=== PATIENT | male | born 1950 | race Caucasian/White ===

== ENCOUNTER → 2019-02-08 | Outpatient (CLI) | payer OTHER ==
[2019-02-08 09:09] LABS: CALCIUM 10.2 mg/dL (8.5-10.1); CREATININE 1.4 mg/dL (0.6-1.3); POTASSIUM 4.5 mmol/L (3.5-5.1)
== END ==
LOC: M.LAB 08:36
PROVIDERS: Internal Medicine Cardiovascular Disease
DX: I11.0 Hypertensive heart disease with heart failure (principal); I50.9 Heart failure, unspecified; E78.5 Hyperlipidemia, unspecified; E11.9 Type 2 diabetes mellitus without complications

== ENCOUNTER → 2019-02-22 | Outpatient (CLI) | payer OTHER ==
[~2019-02-22] MED LIST: AMARYL4 MG PO; COREG6.25 MG PO; COZAAR 25 MG TA25 M1 PO; DICLEGIS DR 101 EACH PO; GLUCOPHAGE1000 MG PO; IMDUR 30 MG TAB30 M1 PO; KLOR-CON 1010 MEQ PO; LASIX 40 MG TAB40 M2 PO; LEVEMIR; LIPITOR10 MG PO; MEGESTROL400 MG/11 PO; METHYLPHENIDATE5 M1 PO; NITROGLYCERIN0.4 MG; PREDNISONE 10 M10 MG PO; ZAROXOLYN 5MG TA5 MG PO; ZYLOPRIM300 MG PO
--- NOTE | 2019-02-22 14:14 | 2DMMODE ---
[place] [address] 2 D/M-MODE ECHOCARDIOGRAM Name: NATALIA VELAZQUEZ Room: [facility]#: [id number] Admission: 02/22/19 Attend Phys: Sonia Goins, Discharge: Date of : 48 Date of Service: 02/22/19 1413 Report #: [id number] THIS REPORT FOR: //name// APPROVED REPORT Study performed: 02/22/2019 12:56:50 EXAM: Comprehensive 2D, Doppler, and color-flow Echocardiogram Patient Location: Out-Patient BSA: 2.00 HR: 70 bpm BP: 120/58 mmHg Other Information Study Quality: Good Indications Congestive Heart Failure Dyspnea CAD 2D Dimensions IVSd: 14.50 (7-11mm) LVOT Diam: 21.41 (18-24mm) LVDd: 53.01 mm PWd: 14.23 (7-11mm) Ascending Ao: 36.34 (22-36mm) LVDs: 37.41 (25-40mm) Aortic Root: 35.11 mm Volumes Left Atrial Volume (Systole) LA ESV Index: 33.80 mL/m2 Aortic Valve AoV Peak Phillip.: 1.21 m/s AO Peak Gr.: 5.82 mmHg LVOT Max P.93 mmHg AO Mean Gr.: 3.41 mmHg LVOT Mean P.33 mmHg LVOT Max V: 0.86 m/s AO V2 VTI: 19.77 cm LVOT Mean V: 0.52 m/s CLEMENT (VTI): 2.93 cm2 LVOT V1 VTI: 16.10 cm Mitral Valve MV Decel. Time: 232.06 ms MV PHT: 67.30 ms MVA (PHT): 3.27 [place]2 [place] [address] 2 D/M-MODE ECHOCARDIOGRAM Name: NATALIA VELAZQUEZ Room: [facility]#: [id number] Admission: 02/22/19 Attend Phys: Sonia Goins, Discharge: Date of : 48 Date of Service: 02/22/19 1413 Report #: [id number] TDI Medial E' Phillip.: 0.09 m/s Lateral E' Phillip.: 0.11 m/s Pulmonary Valve PV Peak Phillip.: 1.09 m/s PV Peak Gr.: 4.77 mmHg Tricuspid Valve RAP Estimate: 10.00 mmHg TR Peak Gr.: 38.45 mmHg RVSP: 48.45 mmHg PA Pressure: 48.45 mmHg Left Ventricle The left ventricle is normal size. There is normal LV segmental wall motion. Mild concentric left ventricular hypertrophy. Left ventricular systolic function is borderline. LVEF is 50%. The left ventricular diastolic function is normal. Right Ventricle The right ventricle is normal size. The right ventricular systolic function is normal. Pacemaker lead is present in the right ventricle. Atria Left atrium is mildly dilated. Pacemaker lead is present in the right atrium. Aortic Valve Mild aortic valve sclerosis. Mild aortic regurgitation. There is no aortic valvular stenosis. Mitral Valve The mitral valve is normal in structure. Mild to moderate mitral regurgitation. No evidence of mitral valve stenosis. Tricuspid Valve The tricuspid valve is normal in structure. Moderate tricuspid regurgitation. Pulmonic Valve The pulmonary valve is normal in structure. Mild pulmonic regurgitation. Great Vessels The aortic root is normal in size. IVC is dilated and collapses <50% [place] [address] 2 D/M-MODE ECHOCARDIOGRAM Name: NATALIA VELAZQUEZ Room: [facility]#: [id number] Admission: 02/22/19 Attend Phys: Sonia Goins, Discharge: Date of : 48 Date of Service: 02/22/19 1413 Report #: [id number] Pericardium There is no pericardial effusion. <Conclusion> The left ventricle is normal size. Mild concentric left ventricular hypertrophy. Left ventricular systolic function is borderline. LVEF is 50%. The right ventricle is normal size. Left atrium is mildly dilated. Pacemaker lead is present in the right atrium. Mild aortic valve sclerosis. Mild aortic regurgitation. There is no aortic valvular stenosis. The mitral valve is normal in structure. Mild to moderate mitral regurgitation. The tricuspid valve is normal in structure. Moderate tricuspid regurgitation. IVC is dilated and collapses <50% with inspiration. There is no pericardial effusion. There is normal LV segmental wall motion. <ELECTRONICALLY SIGNED> By: Floyd Lopez MD, [facility] 02/22/19 1413 1413 1413 Floyd Lopez MD, FACC /INF
== END ==
LOC: M.CRD 12:36
DX: I08.8 Other rheumatic multiple valve diseases (principal); I25.10 Atherosclerotic heart disease of native coronary artery without angina pectoris; I50.9 Heart failure, unspecified

== ENCOUNTER → 2019-02-23 | Outpatient (CLI) | payer OTHER ==
[~2019-02-23] VITALS: Ht 175.3 cm; Wt 84.4 kg
[~2019-02-23] MED LIST changes: +ASPIR 8181 MG PO; +BACTRIM DS TAB1 EACH PO; +DEXAMETHASONE 44 M1 PO; +DICLOFENAC SODI75 MG PO; +ELIGARD45 MG SUBQ; +FISH OIL 1,001000 M2 PO; +FOLIC ACID1 MG PO; +MAGNESIUM OXID500 M1 PO; +NORCO 5-325 TA1 EAC1 PO; +ONDANSETRON ODT8 MG PO; +VITAMIN B COMP1 EACH PO; +VITAMIN D2000 UNIT PO; +VITAMIN E400 UNIT PO; +ZYPREXA 10 MG T10 MG PO
[2019-02-23 09:47] LABS: HEMATOCRIT 35.3 % (42.0-52.0); HEMOGLOBIN 11.4 gm/dL (14.0-18.0); MCH 28.2 pg (26.0-34.0); MCHC 32.2 g/dL (28.0-37.0); MCV 87.6 fL (80.0-100.0); MPV 8.1 fl. (7.2-11.1); RBC 4.03 mil/uL (4.50-6.00); RDW-CV 19.4 % (10.5-14.5); WBC 11.6 thou/uL (4.0-11.0)
[2019-02-23 09:50] VITALS: BP 126/63; BP 131/63
[2019-02-23 10:00] LABS: CALCIUM 9.5 mg/dL (8.5-10.1); CREATININE 1.6 mg/dL (0.6-1.3)
[2019-02-23 10:03] LABS: APTT 27.8 Seconds (25.0-31.3); INR 1.1; PROTIME 11.4 Seconds (9.20-11.50)
[2019-02-23 10:35] LABS: TOTAL BILIRUBIN 1.1 mg/dL (<0.1-1.0); TOTAL PROTEIN 7.3 g/dL (6.4-8.2)
[2019-02-23 13:00] VITALS: BP 114/67
[2019-02-23 13:15] VITALS: BP 112/65
[2019-02-23 13:30] VITALS: BP 114/67
[2019-02-23 13:45] VITALS: BP 115/62
== END | disposition home or self-care (01) ==
LOC: M.INT 08:37
PROVIDERS: Radiology Vascular & Interventional Radiology
DX: Z45.2 Encounter for adjustment and management of vascular access device (principal); C34.90 Malignant neoplasm of unspecified part of unspecified bronchus or lung; I10 Essential (primary) hypertension; E11.9 Type 2 diabetes mellitus without complications; K21.9 Gastro-esophageal reflux disease without esophagitis; M10.9 Gout, unspecified; Z98.41 Cataract extraction status, right eye; Z98.42 Cataract extraction status, left eye; Z96.1 Presence of intraocular lens; Z79.899 Other long term (current) drug therapy; Z79.01 Long term (current) use of anticoagulants

== ENCOUNTER 2019-03-07 19:43 | Inpatient (IN) | payer OTHER ==
[2019-03-07] VITALS (11 sets, daily range): BP systolic 64–641; BP diastolic 37–51
[~2019-03-07] VITALS: Ht 175.3 cm; Wt 83.0 kg
[~2019-03-07 19:43] MED LIST changes: -ASPIR 8181 MG PO; -BACTRIM DS TAB1 EACH PO; -DEXAMETHASONE 44 M1 PO; -DICLOFENAC SODI75 MG PO; -ELIGARD45 MG SUBQ; -FISH OIL 1,001000 M2 PO; -FOLIC ACID1 MG PO; -MAGNESIUM OXID500 M1 PO; -NORCO 5-325 TA1 EAC1 PO; -ONDANSETRON ODT8 MG PO; -VITAMIN B COMP1 EACH PO; -VITAMIN D2000 UNIT PO; -VITAMIN E400 UNIT PO; -ZYPREXA 10 MG T10 MG PO
[2019-03-07] MEDS ORDERED: DEXAMETHASONE 44 M1 PO (19:52)
[2019-03-07] MEDS ORDERED: ASPIR 8181 MG PO (19:52)
[2019-03-07] MEDS ORDERED: VITAMIN D2000 UNIT PO (19:52)
[2019-03-07] MEDS ORDERED: ELIGARD45 MG SUBQ (19:53)
[2019-03-07] MEDS ORDERED: DICLOFENAC SODI75 MG PO (19:53)
[2019-03-07] MEDS ORDERED: FISH OIL 1,001000 M2 PO (19:53)
[2019-03-07] MEDS ORDERED: NORCO 5-325 TA1 EAC1 PO (19:54)
[2019-03-07] MEDS ORDERED: MAGNESIUM OXID500 M1 PO (19:54)
[2019-03-07] MEDS ORDERED: FOLIC ACID1 MG PO (19:54)
[2019-03-07] MEDS ORDERED: ONDANSETRON ODT8 MG PO (19:55)
[2019-03-07] MEDS ORDERED: ZYPREXA 10 MG T10 MG PO (19:55)
[2019-03-07] MEDS ORDERED: VITAMIN E400 UNIT PO (19:56)
[2019-03-07] MEDS ORDERED: BACTRIM DS TAB1 EACH PO (19:56)
[2019-03-07] MEDS ORDERED: VITAMIN B COMP1 EACH PO (19:56)
[2019-03-07 20:23] LABS: HEMATOCRIT 29.3 % (42.0-52.0); HEMOGLOBIN 9.6 gm/dL (14.0-18.0); MCH 28.9 pg (26.0-34.0); MCHC 32.7 g/dL (28.0-37.0); MCV 88.4 fL (80.0-100.0); MPV 7.7 fl. (7.2-11.1); NUCLEATED RBCS 0 /100WBC; PLATELET COUNT* 211 thou/uL (150-400); RBC 3.31 mil/uL (4.50-6.00); RDW-CV 19.7 % (10.5-14.5); WBC 11.4 thou/uL (4.0-11.0)
[2019-03-07 20:32] LABS: CALCIUM 8.3 mg/dL (8.5-10.1); CREATININE 1.6 mg/dL (0.6-1.3)
[2019-03-07 20:34] LABS: APTT 24.7 Seconds (25.0-31.3); INR 1.1; PROTIME 10.9 Seconds (9.20-11.50)
[2019-03-07 20:37] LABS: ALBUMIN 2.7 g/dL (3.4-5.0); TOTAL BILIRUBIN 1.7 mg/dL (<0.1-1.0); TOTAL PROTEIN 6.4 g/dL (6.4-8.2)
[2019-03-07 21:04] LABS: ABSOLUTE LYMPHOCYTES 0.6 thou/uL (0.8-5.3); ABSOLUTE MONOCYTES 0.1 thou/uL (0.0-1.2); ABSOLUTE NEUTROPHILS 10.7 thou/uL (1.6-8.1); PLATELET ESTIMATE ADEQUATE
[2019-03-07 22:09] LABS: HEMATOCRIT 24.1 % (42.0-52.0); MCH 29.3 pg (26.0-34.0); MCHC 33.2 g/dL (28.0-37.0); MCV 88.1 fL (80.0-100.0); MPV 7.7 fl. (7.2-11.1); NUCLEATED RBCS 0 /100WBC; PLATELET COUNT* 159 thou/uL (150-400); RBC 2.73 mil/uL (4.50-6.00); RDW-CV 19.7 % (10.5-14.5); WBC 9.2 thou/uL (4.0-11.0)
[2019-03-07 22:26] LABS: ABSOLUTE LYMPHOCYTES 0.6 thou/uL (0.8-5.3); ABSOLUTE MONOCYTES 0.1 thou/uL (0.0-1.2); ABSOLUTE NEUTROPHILS 8.6 thou/uL (1.6-8.1); ANISOCYTOSIS 2+; OVALOCYTES 1+; PLATELET ESTIMATE ADEQUATE; POIKILOCYTOSIS 1+
[2019-03-07 22:27] LABS: MICROCYTES 2+; SCHISTOCYTES 1+; TEARDROPS Occasional; TOXIC GRANULATION 2+
[2019-03-08] VITALS (31 sets, daily range): BP systolic 84–163; BP diastolic 34–71
[2019-03-08 00:35] LABS: ABSOLUTE LYMPHOCYTES 1.6 thou/uL (0.8-5.3); ABSOLUTE MONOCYTES 0.1 thou/uL (0.0-1.2); ABSOLUTE NEUTROPHILS 11.2 thou/uL (1.6-8.1); BASOPHILS 0.3 %; HEMOGLOBIN 8.1 gm/dL (14.0-18.0); LYMPHOCYTES 12.3 %; MCH 28.9 pg (26.0-34.0); MCHC 32.5 g/dL (28.0-37.0); MCV 88.9 fL (80.0-100.0); MONOCYTES 0.8 %; MPV 8.5 fl. (7.2-11.1); NUCLEATED RBCS 0 /100WBC; PLATELET COUNT* 211 thou/uL (150-400); POLYS 86.6 %; RBC 2.81 mil/uL (4.50-6.00); RDW-CV 19.5 % (10.5-14.5)
[2019-03-08 02:41] LABS: HEMATOCRIT 24.5 % (42.0-52.0); HEMOGLOBIN 8.2 gm/dL (14.0-18.0); MCHC 33.3 g/dL (28.0-37.0); MCV 87.1 fL (80.0-100.0); MPV 7.8 fl. (7.2-11.1); RBC 2.81 mil/uL (4.50-6.00); RDW-CV 18.5 % (10.5-14.5); WBC 8.3 thou/uL (4.0-11.0)
[2019-03-08 07:41] LABS: HEMATOCRIT 27.3 % (42.0-52.0); MCH 29.1 pg (26.0-34.0); MCHC 33.1 g/dL (28.0-37.0); MCV 87.8 fL (80.0-100.0); MPV 7.8 fl. (7.2-11.1); NUCLEATED RBCS 0 /100WBC; PLATELET COUNT* 144 thou/uL (150-400); RDW-CV 17.6 % (10.5-14.5); WBC 6.1 thou/uL (4.0-11.0)
[2019-03-08 08:28] LABS: CALCIUM 7.3 mg/dL (8.5-10.1); CREATININE 1.4 mg/dL (0.6-1.3); MAGNESIUM 2.5 mg/dL (1.8-2.4); POTASSIUM 4.7 mmol/L (3.5-5.1)
[2019-03-08 08:49] LABS: ABSOLUTE LYMPHOCYTES 1.3 thou/uL (0.8-5.3); ABSOLUTE MONOCYTES 0.1 thou/uL (0.0-1.2); ABSOLUTE NEUTROPHILS 4.7 thou/uL (1.6-8.1); ATYPICAL LYMPHS 1 %
[2019-03-08 08:50] LABS: MICROCYTES 1+; PLATELET ESTIMATE DECREASED
[2019-03-08 08:52] LABS: HYPOCHROMASIA 1+; OVALOCYTES 1+
[2019-03-08 08:54] LABS: BURR CELLS 1+; TOXIC GRANULATION 2+
[2019-03-08 12:11] LABS: HEMATOCRIT 29.1 % (42.0-52.0); HEMOGLOBIN 9.9 gm/dL (14.0-18.0)
--- NOTE | 2019-03-08 17:56 | EKG ---
[place] [address] ELECTROCARDIOGRAM REPORT Name: NATALIA VELAZQUEZ Room: [address] [place] M.R.#: [id number] Admission: 03/07/19 Attend Phys: Nelson Asencio Discharge: 03/08/19 Date of : 48 Report #: [id number] THIS REPORT FOR: //name// [facility] ED Test Date: 2019-03-07 Test Time: 19:47:48 Pat Name: NATALIA VELAZQUEZ Department: Room: [address] Gender: M Brush Hand: MR : 1950 Requested By: Michelle Cuevas Order Number: [id number] Radha MD: Marciano Falcon Measurements Intervals [place] Rate: 73 P: 61 OK: 135 QRS: -123 QRSD: 205 T: 84 QT: 475 QTc: 524 Interpretive Statements Atrial-sensed ventricular-paced complexes No further rhythm analysis attempted due to paced rhythm Right bundle branch block Borderline ST depression, lateral leads No previous ECG available for comparison Electronically Signed On 03-08-2019 17:56:20 CDT by Marciano Falcon [email or web address] <ELECTRONICALLY SIGNED> By: Marciano Falcon MD, FACC 03/08/19 1756 [id number] Marciano Falcon MD, FAC /EPI
== END 2019-03-08 16:35 | disposition hospice, home (50) | DRG 377 ==
LOC: M.ERS 19:43 → M.ICU 22:22 → M.TBA-ER 22:22 → M.ICU 22:51
PROVIDERS: Internal Medicine; Nurse Practitioner Family; ADMIT Internal Medicine
PROC: 30233N1 Transfusion of Nonautologous Red Blood Cells into Peripheral Vein, Percutaneous Approach (ICD-10-PCS; principal; 2019-03-07)
DX: K57.11 Diverticulosis of small intestine without perforation or abscess with bleeding (principal); N17.0 Acute kidney failure with tubular necrosis; R57.8 Other shock; D62 Acute posthemorrhagic anemia; C34.90 Malignant neoplasm of unspecified part of unspecified bronchus or lung; I50.22 Chronic systolic (congestive) heart failure; E44.0 Moderate protein-calorie malnutrition; E11.9 Type 2 diabetes mellitus without complications; K21.9 Gastro-esophageal reflux disease without esophagitis; M10.9 Gout, unspecified; K31.4 Gastric diverticulum; I25.10 Atherosclerotic heart disease of native coronary artery without angina pectoris; I11.0 Hypertensive heart disease with heart failure; K59.00 Constipation, unspecified; Z85.46 Personal history of malignant neoplasm of prostate; Z98.42 Cataract extraction status, left eye; Z98.41 Cataract extraction status, right eye; Z79.1 Long term (current) use of non-steroidal anti-inflammatories (NSAID); Z79.4 Long term (current) use of insulin; Z79.899 Other long term (current) drug therapy; Z95.0 Presence of cardiac pacemaker; Z87.891 Personal history of nicotine dependence; Z68.27 Body mass index [BMI] 27.0-27.9, adult